=== PATIENT | male | born 1995 | race Caucasian/White ===

== ENCOUNTER 2017-07-09 09:42 | Day surgery (SDC) | payer BC ==
[~2017-07-09 09:42] MED LIST: AMIT50 PO; AMOCLA400S PO; Bactrim Ds Tab1 EACH PO; CARI350 PO; CHOL10002; CIPDEXSU OT; CITA20; CODACEE120 PO; DOCU100 PO; ESCI20 PO; GABA800; HYDACE10B PO; HYDACE7.5L PO; Keflex500 MG PO; LORA1 PO; MORP15ER PO; OXYACE5T PO; OXYC15ER PO; OXYC30ER PO; RXHYDMOR2 PO; VENL75ER PO; Zanaflex4 M1
== END 2017-07-09 22:45 | disposition home or self-care (01) ==
LOC: RAD 09:42 → CT 10:00 → RAD 10:00 → CT 11:00 → RAD 22:45
PROVIDERS: Radiology Diagnostic Radiology
PROC: B02BYZZ Computerized Tomography (CT Scan) of Spinal Cord using Other Contrast (ICD-10-PCS; principal; 2017-07-09 11:30)
DX: M54.5 Low back pain (principal); M54.16 Radiculopathy, lumbar region; I10 Essential (primary) hypertension; G47.30 Sleep apnea, unspecified
CPT/HCPCS: 62304; 72132; Q9966

== ENCOUNTER 2019-03-19 18:57 | Emergency (ER) | payer BC, MEDICARE ==
[~2019-03-19] VITALS: Ht 188 cm; Wt 155.6 kg
[2019-03-19] MEDS ORDERED: BUSP5 PO (19:41)
[2019-03-19] MEDS ORDERED: CATAPRES-TTS 11 EACH TOP (19:41)
[2019-03-19] MEDS ORDERED: VENL75ER (19:41)
[2019-03-19] MEDS ORDERED: TIAG4 PO (19:42)
[2019-03-19] MEDS ORDERED: Vitamin D2000 UNIT PO (19:42)
[2019-03-19] MEDS ORDERED: OXYC10ER PO (19:42)
[2019-03-19] MEDS ORDERED: GABA800 PO (19:42)
[2019-03-19] MEDS ORDERED: TRAZ50 PO (19:42)
[2019-03-19] MEDS ORDERED: HYDROMORPHONE E12 MG PO (19:42)
[2019-03-19 20:00] LABS: BASOPHILS ABSOLUTE AUTO 0.07 K/mm3 (0.00-0.23); BASOPHILS PERCENT AUTO 1 % (0-2); EOSINOPHILS ABSOLUTE AUTO 0.15 K/mm3 (0.00-0.68); EOSINOPHILS PERCENT AUTO 2 % (0-6); Hematocrit 47.8 % (37.0-53.0); Hemoglobin 15.6 g/dL (13.5-17.5); IMMATURE GRAN ABSOLUTE AUTO 0.03 K/mm3 (0.00-0.10); IMMATURE GRAN PERCENT AUTO 0 % (0-1); LYMPHOCYTES ABSOLUTE AUTO 2.45 K/mm3 (0.84-5.20); LYMPHOCYTES PERCENT AUTO 25 % (21-46); MONOCYTES ABSOLUTE AUTO 0.66 K/mm3 (0.16-1.47); MONOCYTES PERCENT AUTO 7 % (4-13); Mean Corpuscular HGB 28.7 pg (26.0-34.0); Mean Corpuscular HGB Conc 32.6 g/dL (31.5-36.5); Mean Corpuscular Volume 88 fL (80-100); Mean Platelet Volume 9.7 fL (9.1-12.4); NEUTROPHILS ABSOLUTE AUTO 6.34 K/mm3 (1.96-9.15); NEUTROPHILS PERCENT AUTO 65 % (41-73); Platelet Count 263 K/mm3 (150-400); RDW Coefficient Variation 12.4 % (11.7-14.2); RDW Standard Deviation 39.9 fL (35.1-46.3); Red Blood Cell Count 5.44 M/mm3 (4.30-5.90)
[2019-03-19 20:36] LABS: Alanine Aminotransfer (ALT/SGP 70 U/L (12-78); Albumin, Blood 3.6 g/dL (3.4-5.0); Albumin/Globulin Ratio 0.9 (0.8-1.8); Alk Phos 81 U/L (50-136); Anion Gap 5 mmol/L (6-16); Aspartate Aminotrans (AST/SGOT 47 U/L (12-37); Bilirubin, Total 0.6 mg/dL (0.1-1.0); Blood Urea Nitrogen 11 mg/dL (8-24); Bun/Creatinine Ratio 10.6 (12.0-20.0); CO2, Blood 27 mmol/L (21-32); Calcium, Blood 9.1 mg/dL (8.5-10.1); Chloride, Blood 108 mmol/L (98-108); Creatinine, Blood 1.04 mg/dL (0.60-1.20); Globulin, Blood 4.2 g/dL (2.2-4.0); Glomerular Filtration Rate >60 (60-); Glucose, Blood 107 mg/dL (70-99); Potassium, Blood 3.7 mmol/L (3.5-5.5); Sodium, Blood 140 mmol/L (136-145); Total Protein, Blood 7.8 g/dL (6.4-8.2); Troponin I <0.015 ng/mL (0.000-0.040)
[2019-03-19] MEDS ORDERED: HYDHCL25 PO (21:38)
== END 2019-03-19 22:05 | disposition home or self-care (01) ==
LOC: ER 18:57
PROVIDERS: Physician Assistant
DX: F41.9 Anxiety disorder, unspecified (principal); F32.9 Major depressive disorder, single episode, unspecified; G89.29 Other chronic pain; M54.9 Dorsalgia, unspecified; Z88.8 Allergy status to other drugs, medicaments and biological substances; Z88.5 Allergy status to narcotic agent; Z79.899 Other long term (current) drug therapy
CPT/HCPCS: 80053; 84484; 85025; 93005; 93010; 99283-25

== ENCOUNTER → 2019-09-30 | Outpatient (CLI) | payer BC, MEDICARE ==
[~2019-09-30] MED LIST changes: +BUSP5 PO; +CATAPRES-TTS 11 EACH TOP; +GABA800 PO; +HYDHCL25 PO; +HYDROMORPHONE E12 MG PO; +OXYC10ER PO; +TIAG4 PO; +TRAZ50 PO; +VENL75ER; +Vitamin D2000 UNIT PO
== END | disposition home or self-care (01) ==
LOC: LAB EV 17:04 → LAB SHORT 17:04
DX: L02.419 Cutaneous abscess of limb, unspecified (principal)
CPT/HCPCS: 87070; 87075; 87205

== ENCOUNTER → 2020-08-07 | Outpatient (CLI) | payer BC, MEDICARE | LOC: LAB SHORT 16:44 → LAB 16:44 | DX: L02.411 Cutaneous abscess of right axilla (principal); Z88.8 Allergy status to other drugs, medicaments and biological substances; Z88.1 Allergy status to other antibiotic agents | CPT/HCPCS: 87070; 87205 ==